=== PATIENT | female | born 1985 | race African-American/Black ===

== ENCOUNTER 2021-09-25 14:48 | Emergency (ER) | payer OTHER ==
[2021-09-25 15:03] VITALS: BP 113/74; PULSE 70; TEMP 98; BMI 36.2
[2021-09-25] MEDS ORDERED: KETOROLAC TROMETHAMINE 15 MG/ML VIAL IM ONE (15:32)
[2021-09-25] MEDS ORDERED: KETOROLAC TROMETHAMINE 15 MG/ML VIAL ONE (15:36)
== END 2021-09-25 17:20 | disposition home or self-care (01) ==
LOC: JERFT 14:48
PROC: 3E0233Z Introduction of Anti-inflammatory into Muscle, Percutaneous Approach (ICD-10-PCS; principal; 2021-09-25)
DX: M54.31 Sciatica, right side (principal)
CPT/HCPCS: 72070-TC-FY; 72100-TC-FY; 99284-25